=== PATIENT | male | born 1980 | race Caucasian/White ===

== ENCOUNTER → 2025-06-17 07:32 | Outpatient (REF) | payer OTHER, SELFPAY | LOC: RAD 07:32 | PROVIDERS: ATTENDING PHYSICIAN Physician Assistant Medical; FAMILY PHYSICIAN Family Medicine | DX: M67.88 Other specified disorders of synovium and tendon, other site (principal); R79.89 Other specified abnormal findings of blood chemistry; K76.0 Fatty (change of) liver, not elsewhere classified | CPT/HCPCS: 73564; 73610; 76700; 76882 ==

== ENCOUNTER 2025-06-26 18:42 | Emergency (ER) | payer OTHER, SELFPAY ==
[2025-06-26 18:47] VITALS: BP 135/91
[2025-06-26 20:09] VITALS: BP 133/86
[2025-06-26 20:15] LABS: Hematocrit 39.1 % (39.0-52.0); Hemoglobin 13.9 g/dL (13.0-18.0); Mean Corp Hgb Conc. 35.5 g/dL (33.0-37.0); Mean Corpuscular Volume 84.6 fL (80.0-94.0); Nucleated Red Blood Cells % 0 % (-); Platelet Count 209 10^3/uL (130-400); Red Cell Dist. Width 12.1 % (11.5-14.5)
--- NOTE | 2025-06-26 20:28 | ED.GENMED ---
History of Present Illness
General
Chief Complaint: Abdominal Pain
Source: patient
Exam Limitations: none
Time Seen by Provider: 06/26/25 19:39
Nursing documentation reviewed up to this point in time: agreed with
History of Present Illness
History of Present Illness:
Patient is a 45-year-old male who presents to the ER complaining of left-sided abdominal pain since last night. Pain has been persistent. He was concerned about a hernia however denies any injury or lump to the area. He denies any nausea vomiting
diarrhea constipation . He has not had a prior colonoscopy, he is scheduled in 2 weeks by GI here at [facility].
Past History
Social History
Tobacco: Non-smoker
Personal:
Phy Exam
General Physical Exam
General Presentation: no apparent distress
General age: appears stated age
General Skin: warm and dry
General Habitus: normal
General Mental: alert
General Hydration: appears well hydrated
Cardiovascular Exam
Cardiovascular Exam: regular rate/rhythm, no murmur and normal peripheral pulses
Pulmonary Exam
Pulmonary Exam: lungs clear and no respiratory distress
Gastrointestinal Exam
Gastrointestinal Exam: soft and other (+ left sided abd tenderness )
Neurological Exam
Neurological Exam: alert and oriented x3
Musculoskeletal Exam
Musculoskeletal Exam: full ROM
Skin Exam
Skin Exam: normal color and warm/dry
Psychiatric Exam
Psychiatric Exam: normal mood/affect
Course
Orders/Labs/Results
Orders:
Orders
06/26/25 20:10
Complete Blood Count/With Diff Urgent
Comprehensive Metabolic Panel Urgent
Lipase Urgent
06/26/25 20:42
CT Abd/Pel (IV only)-DH only Urgent
Comment:
Reason For Exam: left sided abd pain
Cardiac Monitoring- Treatment ONCE
IV Insert/Care/Rem.- Treatment PRN
0.9% Sodium Chloride 1000 ml [Nss] 1,000 ml IV BOLUS
Ketorolac [Toradol] 15 mg IV NOW STA
Ondansetron Injectable [Zofran] 4 mg IV NOW STA
06/26/25 21:39
Urinalysis Reflex To Culture Urgent
Date Specimen was Collected: 06/26/25
Time Specimen was Collected: 21:32
06/26/25 22:14
Amoxicillin 875 mg/Clav 125 mg [Augmentin 875 mg/125 mg] 1 tablet PO NOW STA
Abnormal Lab Results
06/26/25
20:10
RBC 4.62 L 10^6/uL
(4.70-6.10)
Absolute Neuts (auto) 6.8 H 10^3/uL
(1.4-6.5)
Absolute Monos (auto) 0.8 H 10^3/uL
(0.1-0.6)
Lymphocytes % 18.9 L %
(20.5-51.1)
Glucose 115 H mg/dl
(70-99)
06/26/25 20:10
06/26/25 20:10
Vital Signs
Initial and Last Documented VS:
Initial Vital Signs
Temp Pulse Resp BP Pulse Ox
98.5 F 99 20 135/91 98
06/26/25 18:47 06/26/25 18:47 06/26/25 18:47 06/26/25 18:47 06/26/25 18:47
Last Documented Vital Signs
Temp Pulse Resp BP Pulse Ox
98.5 F 80 18 117/68 96
06/26/25 18:47 06/26/25 22:17 06/26/25 22:17 06/26/25 22:01 06/26/25 22:15
MDM/Problems Addressed
Differential Diagnosis Includes:
Not limited to colitis diverticulitis bowel obstruction constipation renal colic
MDM/Problems Addressed:
CAT scan confirms diverticulitis of the descending colon and sigmoid colon no perforation or abscess. Patient is well-appearing with normal white count patient was given Toradol fluids here feeling better. Will DC with Augmentin . pt has
colonoscopy in 2 wks here at [facility]. benja w/ pt to call office in the am to make them aware of dx.
*Radiology
Radiology exam reviewed: radiology read reviewed
*Pulse Oximetry
SaO2: 96
Oxygen Mode of Delivery: Room air
Patient hypoxic: no
*Critical Care Note
Total Time (30-74mins, 75-104mins- exclusive of procedures): Not Applicable
ED Attending Note
-
Portions of this chart may have been created with voice recognition software.� Occasional wrong word or��sound alike� substitutions may have occurred due to the inherent limitations of voice recognition software.
Discharge Plan
Departure
Patient Disposition: Home (Routine Discharge)
Date of Disposition: 06/26/25
Time of Disposition: 22:26
Patient with high blood pressure during this ER visit?: Yes
Condition: Fair
Covid-19: Not Applicable
Discharge Problem:
Diverticulitis
Instructions: Diverticulitis (DC), BLOOD PRESSURE
Prescriptions:
New
amoxicillin-pot clavulanate 875-125 mg tablet
1 tab PO BID Qty: 20 0RF
Referrals:
Leoncio Barron DO [Family Provider, Family Practice]
Norma Ayala MD [Active, Gastroenterology]
Activity Restrictions/Additional Instructions:
As discussed bland diet for the next several days. Augmentin twice a day for the next 10 days. Please call your GI specialist tomorrow to make them aware. Return to the ER if any worsening of symptoms or increased pain fever chills nausea
vomiting.
You may alternate between Tylenol and ibuprofen for discomfort.
Interventions
Interventions:
*Risk Screen - Suicide Last Done: 06/26/25 18:47
*General Assessment Last Done: 06/26/25 18:47
*Neglect/Abuse Screening Last Done: 06/26/25 18:47
*ED- Fall Risk Assessment Last Done: 06/26/25 20:12
*ED COVID-19 Vaccine History Last Done: 06/26/25 18:52
OD-Aqgmia-Utnupkubwl Assessment Last Done: 06/26/25 20:11
Discharge Date and Time
Print Language: BELARUSIAN
[2025-06-26 20:50] LABS: ALT (SGPT) 49 U/L (0-50); AST (SGOT) 31 U/L (17-59); Albumin 4.8 g/dl (3.5-5.0); Alkaline Phosphatase 46 U/L (38-126); Blood Urea Nitrogen 17 mg/dl (9-20); Calcium 9.8 mg/dl (8.4-10.2); Carbon Dioxide 26 mmol/L (22-30); Chloride 101 mmol/L (98-107); Glucose 115 mg/dl (70-99); Lipase 164 U/L (23-300); Potassium 4.2 mmol/L (3.5-5.1); Sodium 135 mmol/L (135-145); Total Protein 7.7 g/dl (6.3-8.2); eGFR > 60.00
[2025-06-26] MEDS: NSS 1000 IV (20:51)
[2025-06-26] MEDS: TORADOL 15 MG IV (20:51)
[2025-06-26] MEDS: ZOFRAN 4 MG IV (20:51)
[2025-06-26 21:00] VITALS: BP 121/80
[2025-06-26 21:46] LABS: Urine Character Clear (Clear)
[2025-06-26 22:01] VITALS: BP 117/68
[2025-06-26] MEDS: AUGMENTIN 875 MG/125 MG 1 TABLET PO (22:19)
== END 2025-06-26 22:40 | disposition home or self-care (01) ==
LOC: EMR 18:42
PROVIDERS: Nurse Practitioner; EMERGENCY PHYSICIAN Emergency Medicine; FAMILY PHYSICIAN Family Medicine
DX: K57.32 Diverticulitis of large intestine without perforation or abscess without bleeding (principal)
CPT/HCPCS: 99284; 96374; 96375; 96361; 74177; 80053; 81003; 83690; 85025; Q9967

== ENCOUNTER 2025-09-07 06:35 | Day surgery (SDC) | payer OTHER, SELFPAY | END 2025-09-07 16:50 | disposition home or self-care (01) | LOC: GI 06:35 | PROVIDERS: ATTENDING PHYSICIAN Internal Medicine | DX: Z12.11 Encounter for screening for malignant neoplasm of colon (principal); K57.30 Diverticulosis of large intestine without perforation or abscess without bleeding; D12.7 Benign neoplasm of rectosigmoid junction; K63.5 Polyp of colon | CPT/HCPCS: 45385; 45380; 88305 ==